=== PATIENT | female | born 1960 | race Hispanic/Latino ===

== ENCOUNTER 2017-06-06 13:55 | Inpatient (IN) | payer MEDICAID ==
[2017-06-06] MEDS ORDERED: PROVENTIL IH ONE ×2 (14:02→14:15)
[2017-06-06] MEDS ORDERED: ATROVENT IH ONE ×2 (14:02→14:16)
[2017-06-06] MEDS ORDERED: MAGNESIUM SULFATE 1 GM in NACL 0.9% 50 ML IV ONE (14:12)
--- NOTE | 2017-06-06 14:28 | Emergency Department Report ---
HPI - General Chief Complaint: Dyspnea/Respdistress Time Seen by Provider: 06/06/17 14:10 - HPI HPI: This 57-year-old female with history of COPD and tobacco abuse continuous presents to ED in severe respiratory distress on CPAP per EMS, because her sats was in the lower 80s. Patient states she's been short of breath, wheezing for the past 3-4 days. She has seen her java lead architect Dr. Turner who recommended that she come to ED for further evaluation. While on her way to ED her shortness of breath, became extremely worse she had to call EMS for help. Patient has been steroids outpatient and outpatient antibiotics without relief for the past 3 days. 3 days ago her java lead architect recommended that she come to the hospital for admission but she refused at that time. ED Past Medical Hx - Past Medical History Hx Asthma: Yes Hx COPD: Yes Additional medical history: Anxiety - Surgical History Additional Surgical History: L. leg surgey, hysterectomy - Family History Family history: hypertension - Social History Smoking Status: Current Every Day Smoker - Medications Home Medications: Home Medications Medication Instructions Recorded Confirmed Last Taken Type ALBUTEROL Inhaler [ProAir HFA 2 puff IH QID PRN #1 container 06/07/16 Unknown Rx Inhaler] Azithromycin [Zithromax TAB] 500 mg PO DAILY #4 tablet 06/07/16 Unknown Rx Budesoni/Formotero 160-4.5(Nf) 2 puff IH BID #1 container 06/07/16 Unknown Rx [Symbicort 160-4.5 (Nf)] Ipratropium/Albuterol Sulfate 1 ampul IH Q6HRT #120 ampul.neb 06/07/16 Unknown Rx [DUONEB *Not for PRN Use*] Ondansetron [Zofran Odt] 4 mg PO Q8HR #20 tab.rapdis 06/07/16 Unknown Rx Pantoprazole [Protonix TAB] 20 mg PO QDAY #30 tablet. 06/07/16 Unknown Rx Prednisone [predniSONE 5 mg (6-Day 5 mg PO .TAPER #1 tab.ds.pk 06/07/16 Unknown Rx Pack, 21 Tabs)] ED Review of Systems ROS: Stated complaint: EL Other details as noted in HPI Comment: All other systems reviewed and negative Respiratory: shortness of breath, wheezing Gastrointestinal: as per HPI Genitourinary: as per HPI Musculoskeletal: as per HPI Physical Exam - Physical Exam Vital Signs: Vital Signs 06/06/17 06/06/17 13:55 14:18 Pulse Rate 111 H Pulse Rate [ 98 H Anterior Bilateral Throughout] Respiratory 20 Rate Respiratory 17 Rate [Anterior Bilateral Throughout] Blood Pressure 150/81 O2 Sat by Pulse 100 Oximetry Physical Exam: - Physical Exam - General Limitations: In respiratory distress General appearance: Obese and respiratory distress - Head Head exam: Present: atraumatic, normocephalic - Eye Eye exam: Present: normal appearance - ENT ENT exam: Present: mucous membranes moist - Neck Neck exam: Present: normal inspection - Respiratory Respiratory exam: Present: Severe wheezing bilaterally - Cardiovascular Cardiovascular Exam: Present: normal rhythm, tachycardia. Absent: systolic murmur, diastolic murmur, rubs, gallop - GI/Abdominal GI/Abdominal exam: Present: soft, normal bowel sounds - Extremities Exam Extremities exam: Present: normal inspection - Back Exam Back exam: Present: normal inspection - Neurological Exam Neurological exam: Present: alert, oriented X3 - Psychiatric Psychiatric exam: normal affect and mood - Skin Skin exam: Present: warm, dry, intact, normal color. Absent: rash ED Course Vital Signs 06/06/17 06/06/17 13:55 14:18 Pulse Rate 111 H Pulse Rate [ 98 H Anterior Bilateral Throughout] Respiratory 20 Rate Respiratory 17 Rate [Anterior Bilateral Throughout] Blood Pressure 150/81 O2 Sat by Pulse 100 Oximetry Critical care attestation.: If time is entered above; I have spent that time in minutes in the direct care of this critically ill patient, excluding procedure time. ED Disposition Clinical Impression: COPD exacerbation Disposition: OP ADMIT IP TO THIS HOSP Is pt being admited?: Yes Does the pt Need Aspirin: No Condition: Stable Instructions: Chronic Obstructive Pulmonary Disease (ED)
[2017-06-06 14:40] LABS: Basophils % (Auto) 0.3 % (0.0-1.8); Hematocrit 41.3 % (30.3-42.9); Hemoglobin 13.6 gm/dl (10.1-14.3); Mean Corpuscular HGB Conc 33 % (30-34); Mean Corpuscular Hemoglobin 30 pg (28-32); Mean Corpuscular Volume 91 fl (79-97); Platelet Count 167 K/mm3 (140-440); Red Blood Count 4.55 M/mm3 (3.65-5.03); Red Cell Distribution Width 16.6 % (13.2-15.2); White Blood Count 7.5 K/mm3 (4.5-11.0)
--- NOTE | 2017-06-06 14:47 | XRay Report ---
AP CHEST: HISTORY: Short of breath Rebreather device is noted. Heart size and pulmonary vascularity are within normal limits. The lungs are mildly hyperinflated but clear. No consolidation, pleural effusion or pneumothorax. IMPRESSION: No acute cardiopulmonary process is appreciated.
[2017-06-06 14:51] LABS: INR 0.89 (0.87-1.13)
[2017-06-06 14:52] LABS: Partial Thromboplastin Time 22.6 Sec. (24.2-36.6)
--- NOTE | 2017-06-06 14:58 | Admit Criteria Form ---
Admission Criteria Documentation: COPD Clinical Indications for Admission to Inpatient Care (Native/ check or initial the applicable condition/criteria) Admission is indicated for ANY ONE of the following (1)(2)(3): [ ]I. Acute exacerbation by high-risk comorbidity(e.g., pneumonia, dysrhythmia, heart failure, pleural effusion, pneumothorax) or severe underlying COPD (eg, baseline FEV1 less than 50% predicted) [ X]II. Inpatient admission required[A] rather than observation care (see Chronic Obstructive Pulmonary Disease: Observation Care) because of ANY ONE of the following: [X ]a) New or pre-existing signs or symptoms of COPD (eg, dyspnea or Tachypnea at rest or with minimal activity) that persist despite outpatient and observation care treatment [ ]b) New-onset hypoxemia (room air SaO2 less than 90%, PO2 less than 60 mm Hg (8.0 kPa)) that persists despite outpatient and observation care treatment [ ]c) Worsening of pre-existing hypoxemia (eg, new or increased requirement for supplemental oxygen to maintain oxygenation at baseline level) that persists despite outpatient and observation care treatment, with oxygen treatment needs performable only in acute inpatient setting [ ]d) Hypercarbia (PCO2 greater than 40 mm Hg (5.3 kPa))-induced respiratory acidosis (pH less than 7.35) that persists despite outpatient and observation care treatment [ ]e) Supplemental oxygen or respiratory treatments for over 24 hours that are performable only in acute inpatient setting [ ]f) Chest tube placement with active evacuation (e.g., suction, drainage) (6) [ ]g) Other condition, treatment or monitoring requiring inpatient admission [ ]III. Planned invasive surgical or diagnostic procedures requiring acute- care hospitalization [ ]IV. Acute respiratory failure (e.g., uncompensated hypercarbia, severe hypoxemia) [ ]V. Severe comorbid condition (e.g., severe steroid myopathy, acute vertebral fracture) that has acutely worsened pulmonary function [ ]. Altered mental status that is severe or persistent Extended stay beyond goal length of stay may be needed for (29)(30)(31)(32)(33) : [ ]a ) Respiratory Failure. [ ]b) Severe or persisting hypoxemia or hypercarbia [ ]c) Severe or persistent dyspnea [ ]d) Clinically significant Comorbidities (e.g. chronic heart failure, atrial fibrillation with rapid response, pneumonia)(36) [ ]e) Malnutrition (33) The original [facility] content created by [facility] has been revised. The portions of the content which have been revised are identified through the use of italic text or in bold, and [facility] has neither reviewed nor approved the modified material. All other unmodified content is copyright [facility]. Please see references footnoted in the original [facility] edition 2017 Admission Criteria Met: Yes
[2017-06-06] MEDS ORDERED: MAGNESIUM SULFATE 2GM/50ML 0 GM/0 ML BAG IV ONE (15:06)
[2017-06-06 15:39] LABS: Alanine Aminotransferase 238 units/L (7-56); Albumin 3.8 g/dL (3.9-5); Albumin/Globulin Ratio 1.5 %; Alkaline Phosphatase 72 units/L (35-129); Anion Gap 21 mmol/L; Blood Urea Nitrogen 18 mg/dL (7-17); Calcium 8.6 mg/dL (8.4-10.2); Carbon Dioxide 27 mmol/L (22-30); Chloride 97.2 mmol/L (98-107); Glucose 231 mg/dL (65-100); Potassium 4.2 mmol/L (3.6-5.0); Sodium 141 mmol/L (137-145); Total Protein 6.4 g/dL (6.3-8.2)
[2017-06-06 15:51] LABS: ISTAT Base Excess 4; ISTAT HCO3 29.6; ISTAT PH 7.347 (7.35-7.45); ISTAT PO2 107 (80-105); ISTAT SO2 98; ISTAT TCO2 31
[2017-06-06] MEDS ORDERED: DULCOLAX PR PRN (18:21)
[2017-06-06] MEDS ORDERED: DILAUDID IV PRN (18:21)
[2017-06-06] MEDS ORDERED: MILK OF MAGNESIA PO PRN (18:21)
[2017-06-06] MEDS ORDERED: TYLENOL PO PRN (18:21)
--- NOTE | 2017-06-06 18:21 | History and Physical Report ---
History of Present Illness Date of examination: 06/06/17 Date of admission: 06/06/17 Chief complaint: Severe resp distress since AM History of present illness: HPI This 57-year-old female with history of COPD and tobacco abuse presents to ED in severe respiratory distress on CPAP per EMS, because her sats was in the lower 80s. Patient states she's been short of breath, wheezing for the past 3-4 days. She has seen her commercial review appraiser Dr. Turner who recommended that she come to ED for further evaluation. While on her way to ED her shortness of breath, became extremely worse she had to call EMS for help. Patient has been steroids outpatient and outpatient antibiotics without relief for the past 3 days. 3 days ago her commercial review appraiser recommended that she come to the hospital for admission but she refused at that time. - Past Medical History Hx Asthma: Yes Hx COPD: Yes Additional medical history: Anxiety - Surgical History Additional Surgical History: L. leg surgey, hysterectomy - Family History Family history: hypertension - Social History Smoking Status: Current Every Day Smoker - Medications Home Medications: Home Medications Medication Instructions Recorded Confirmed Last Taken Type ALBUTEROL Inhaler [ProAir HFA 2 puff IH QID PRN #1 container 06/07/16 Unknown Rx Inhaler] Azithromycin [Zithromax TAB] 500 mg PO DAILY #4 tablet 06/07/16 Unknown Rx Budesoni/Formotero 160-4.5(Nf) 2 puff IH BID #1 container 06/07/16 Unknown Rx [Symbicort 160-4.5 (Nf)] Ipratropium/Albuterol Sulfate 1 ampul IH Q6HRT #120 ampul.neb 06/07/16 Unknown Rx [DUONEB *Not for PRN Use*] Ondansetron [Zofran Odt] 4 mg PO Q8HR #20 tab.rapdis 06/07/16 Unknown Rx Pantoprazole [Protonix TAB] 20 mg PO QDAY #30 tablet. 06/07/16 Unknown Rx Prednisone [predniSONE 5 mg (6-Day 5 mg PO .TAPER #1 tab.ds.pk 06/07/16 Unknown Rx Pack, 21 Tabs)] Review of Systems ROS: Stated complaint: EL Other details as noted in HPI Comment: All other systems reviewed and negative Respiratory: shortness of breath, wheezing Gastrointestinal: as per HPI Genitourinary: as per HPI Musculoskeletal: as per HPI Medications and Allergies Allergies Allergy/AdvReac Type Severity Reaction Status Date / Time No Known Allergies Allergy Unverified 02/15/16 06:56 Home Medications Medication Instructions Recorded Confirmed Last Taken Type ALBUTEROL Inhaler [ProAir HFA 2 puff PO BID 06/06/17 06/06/17 Unknown History Inhaler] Famotidine [Pepcid] 20 mg PO QDAY PRN 06/06/17 06/06/17 Unknown History Naproxen Sodium [Aleve TAB] 1 tab PO QDAY PRN 06/06/17 06/06/17 Unknown History guaiFENesin/DEXTROMETHORPHAN 1 tab PO Q4H 06/06/17 06/06/17 Unknown History [Mucinex DM ER 600-30 mg TAB] predniSONE [Deltasone] 10 mg PO BID 06/06/17 06/06/17 Unknown History Exam - Physical Exam Narrative exam: In severe distress - Constitutional Vitals: Temp Pulse Resp BP Pulse Ox 98.5 F 105 H 22 146/75 94 06/06/17 17:20 06/06/17 17:20 06/06/17 17:20 06/06/17 17:20 06/06/17 17:20 General appearance: Present: severe distress, well-nourished - EENT Eyes: Present: PERRL ENT: hearing intact, clear oral mucosa - Neck Neck: Present: supple, normal ROM - Respiratory Respiratory effort: normal Respiratory: bilateral: diminished, rhonchi, wheezing - Cardiovascular Heart rate: 105 Rhythm: regular Heart Sounds: Present: S1 & S2. Absent: rub, click - Extremities Extremities: no ischemia, pulses intact, pulses symmetrical, No edema Peripheral Pulses: within normal limits - Abdominal General gastrointestinal: Present: soft, non-tender, non-distended, normal bowel sounds Female genitourinary: Present: normal - Rectal Rectal Exam: deferred - Integumentary Integumentary: Present: clear, warm, dry - Musculoskeletal Musculoskeletal: gait normal, strength equal bilaterally - Psychiatric Psychiatric: appropriate mood/affect, intact judgment & insight - Neurologic Neurologic: CNII-XII intact, moves all extremities - Allied Health Allied health notes reviewed: nursing, case management Results - Labs CBC & Chem 7: 06/06/17 14:25 06/06/17 14:25 Labs: Laboratory Last Values WBC 7.5 K/mm3 (4.5-11.0) 06/06/17 14:25 RBC 4.55 M/mm3 (3.65-5.03) 06/06/17 14:25 Hgb 13.6 gm/dl (10.1-14.3) 06/06/17 14:25 Hct 41.3 % (30.3-42.9) 06/06/17 14:25 MCV 91 fl (79-97) 06/06/17 14:25 MCH 30 pg (28-32) 06/06/17 14:25 MCHC 33 % (30-34) 06/06/17 14:25 RDW 16.6 % (13.2-15.2) H 06/06/17 14:25 Plt Count 167 K/mm3 (140-440) 06/06/17 14:25 Lymph % (Auto) 8.8 % (13.4-35.0) L 06/06/17 14:25 [place] % (Auto) 2.2 % (0.0-7.3) 06/06/17 14:25 Eos % (Auto) 0.0 % (0.0-4.3) 06/06/17 14:25 Baso % (Auto) 0.3 % (0.0-1.8) 06/06/17 14:25 Lymph # 0.7 K/mm3 (1.2-5.4) L 06/06/17 14:25 [place] # 0.2 K/mm3 (0.0-0.8) 06/06/17 14:25 Eos # 0.0 K/mm3 (0.0-0.4) 06/06/17 14:25 Baso # 0.0 K/mm3 (0.0-0.1) 06/06/17 14:25 Seg Neutrophils % 88.7 % (40.0-70.0) H 06/06/17 14:25 Seg Neutrophils # 6.6 K/mm3 (1.8-7.7) 06/06/17 14:25 PT 12.5 Sec. (12.2-14.9) 06/06/17 14:25 INR 0.89 (0.87-1.13) 06/06/17 14:25 APTT 22.6 Sec. (24.2-36.6) L 06/06/17 14:25 POC ABG pH 7.347 (7.35-7.45) L 06/06/17 15:49 POC ABG pCO2 54.0 (35-45) H 06/06/17 15:49 POC ABG pO2 107 (80-105) H 06/06/17 15:49 POC ABG HCO3 29.6 06/06/17 15:49 POC ABG Total CO2 31 06/06/17 15:49 POC ABG O2 Sat 98 06/06/17 15:49 POC ABG Base Excess 4 06/06/17 15:49 FiO2 36 % 06/06/17 15:49 Sodium 141 mmol/L (137-145) 06/06/17 14:25 Potassium 4.2 mmol/L (3.6-5.0) 06/06/17 14:25 Chloride 97.2 mmol/L (98-107) L 06/06/17 14:25 Carbon Dioxide 27 mmol/L (22-30) 06/06/17 14:25 Anion Gap 21 mmol/L 06/06/17 14:25 BUN 18 mg/dL (7-17) H 06/06/17 14:25 Creatinine 0.5 mg/dL (0.7-1.2) L 06/06/17 14:25 Estimated GFR > 60 ml/min 06/06/17 14:25 BUN/Creatinine Ratio 36.00 % 06/06/17 14:25 Glucose 231 mg/dL (65-100) H 06/06/17 14:25 Calcium 8.6 mg/dL (8.4-10.2) 06/06/17 14:25 Total Bilirubin 0.20 mg/dL (0.1-1.2) 06/06/17 14:25 AST 195 units/L (5-40) H 06/06/17 14:25 ALT 238 units/L (7-56) H 06/06/17 14:25 Alkaline Phosphatase 72 units/L (35-129) 06/06/17 14:25 Troponin T < 0.010 ng/mL (0.00-0.029) 06/06/17 14:25 NT-Pro-B Natriuret Pep 47.53 pg/mL (0-900) 06/06/17 14:25 Total Protein 6.4 g/dL (6.3-8.2) 06/06/17 14:25 Albumin 3.8 g/dL (3.9-5) L 06/06/17 14:25 Albumin/Globulin Ratio 1.5 % 06/06/17 14:25 Short CBC 06/06/17 Range/Units 14:25 WBC 7.5 (4.5-11.0) K/mm3 Hgb 13.6 (10.1-14.3) gm/dl Hct 41.3 (30.3-42.9) % Plt Count 167 (140-440) K/mm3 BMP 06/06/17 14:25 Sodium 141 Potassium 4.2 Chloride 97.2 L Carbon Dioxide 27 BUN 18 H Creatinine 0.5 L Glucose 231 H Calcium 8.6 Cardiac Enzymes 06/06/17 Range/Units 14:25 Troponin T < 0.010 (0.00-0.029) ng/mL Liver Function 06/06/17 Range/Units 14:25 Total Bilirubin 0.20 (0.1-1.2) mg/dL AST 195 H (5-40) units/L ALT 238 H (7-56) units/L Alkaline Phosphatase 72 (35-129) units/L Albumin 3.8 L (3.9-5) g/dL - Imaging and Cardiology EKG: report reviewed (Sinus tach) Chest x-ray: report reviewed (NAF) Assessment and Plan Advance Directives: Yes VTE prophylaxis?: Chemical Plan of care discussed with patient/family: Yes - Patient Problems (1) Acute respiratory failure with hypoxia Current Visit: No Status: Acute Plan to address problem: Agressive treatment with BIPAP Neb tx Solumedrol and IV ABX Intubation if necessary (2) COPD exacerbation Current Visit: Yes Status: Acute (3) Hypertension Current Visit: No Status: Chronic Qualifiers: Hypertension type: essential hypertension Qualified Code(s): I10 - Essential (primary) hypertension Plan to address problem: not on any antihypertensives.Borderline.Initiate Loartan if necessary (4) Tobacco abuse Current Visit: No Status: Chronic Plan to address problem: To be counselled Patient in severe distress -hence not counselled (5) GERD (gastroesophageal reflux disease) Current Visit: Yes Status: Chronic Qualifiers: Esophagitis presence: without esophagitis Qualified Code(s): K21.9 - Gastro -esophageal reflux disease without esophagitis Plan to address problem: On Famotidine (6) DVT prophylaxis Current Visit: Yes Status: Acute Plan to address problem: on Lovenox
[2017-06-06] MEDS ORDERED: ZOFRAN ONE ×2 (18:24→19:25)
[2017-06-06] MEDS ORDERED: PEPCID PO PRN (18:24)
[2017-06-06] MEDS ORDERED: ZOFRAN IV ONE (18:25)
[2017-06-06] MEDS ORDERED: DILAUDID ONE (19:25)
[2017-06-06] MEDS ORDERED: LEVAQUIN 750MG/150ML 750 MG/150 ML BAG IV SCH (19:30)
[2017-06-06] MEDS: ZOFRAN IV PRN (19:31)
[2017-06-06] MEDS ORDERED: LEVAQUIN 750MG/150ML 750 MG/150 ML BAG IV ONE (19:36)
[2017-06-06] MEDS ORDERED: DELTASONE PO SCH (22:00)
[2017-06-07] MEDS: DUONEB *Not for PRN Use IH SCH ×5 (00:50→20:50)
[2017-06-07] MEDS: ZOFRAN IV PRN ×2 (03:00→13:25)
[2017-06-07] MEDS: PERCOCET 5/325 PO PRN ×3 (06:29→23:45)
--- NOTE | 2017-06-07 10:09 | Progress Note ---
Assessment and Plan Assessment and plan: 57-year-old woman with a past medical history of COPD and tobacco abuse who presented to the ER with shortness of breath and hypoxia Chest x-ray, image reviewed no acute cardiopulmonary process Acute hypoxic respiratory failure * Continue supplemental oxygen, and aggressively treat COPD exacerbation COPD exacerbation * Continue steroids, nebs, antibiotics, noninvasive positive pressure ventilation as needed * pulmonology consult Anxiety disorder * We'll monitor and give low-dose benzodiazepine if needed Tobacco abuse * Smoking cessation counseling provided along with, nicotine patches * This patient actually left her room for a few hours and went outside the hospital to smoke, she was advised that she's no longer to do that when she sustained her while she is inpatient. This was discussed with her nurse also, patient has been advised not to leave her room and not to go outside and smoke while she is admitted to the hospital GERD * Continue famotidine Prediabetes * Hyperglycemia most likely due to steroids, * Hemoglobin A1c is 6.4, continue sliding scale as needed, dietitian consult for diet education DVT prophylaxis with Lovenox History Interval history: She continues to have shortness of breath and wheezing, but she states that shortness of breath is much improved. Hospitalist Physical - Physical exam Narrative exam: General.: Appears well, no distress, nontoxic HEENT: Moist mucous membranes, extraocular muscles intact, no lymphadenopathy Neck: supple Cardiac: S1-S2 heard Lungs: Reduced air entry, wheezing bilaterally Abdomen: soft , nontender, nondistended, bowel sounds positive Extremities: no edema clubbing or cyanosis Skin: no rash or lesions Neurologic: no gross focal deficits Psych: appropriate behavior, appropriate mood, corporative, judgment intact - Constitutional Vitals: Temp Pulse Resp BP Pulse Ox 98 F 91 H 20 145/74 96 06/06/17 18:55 06/07/17 09:46 06/07/17 09:46 06/06/17 20:45 06/07/17 09:36 General appearance: Present: mild distress, well-nourished Results - Labs CBC & Chem 7: 06/06/17 14:25 06/06/17 14:25 Labs: Laboratory Last Values WBC 7.5 K/mm3 (4.5-11.0) 06/06/17 14:25 RBC 4.55 M/mm3 (3.65-5.03) 06/06/17 14:25 Hgb 13.6 gm/dl (10.1-14.3) 06/06/17 14:25 Hct 41.3 % (30.3-42.9) 06/06/17 14:25 MCV 91 fl (79-97) 06/06/17 14:25 MCH 30 pg (28-32) 06/06/17 14:25 MCHC 33 % (30-34) 06/06/17 14:25 RDW 16.6 % (13.2-15.2) H 06/06/17 14:25 Plt Count 167 K/mm3 (140-440) 06/06/17 14:25 Lymph % (Auto) 8.8 % (13.4-35.0) L 06/06/17 14:25 [place] % (Auto) 2.2 % (0.0-7.3) 06/06/17 14:25 Eos % (Auto) 0.0 % (0.0-4.3) 06/06/17 14:25 Baso % (Auto) 0.3 % (0.0-1.8) 06/06/17 14:25 Lymph # 0.7 K/mm3 (1.2-5.4) L 06/06/17 14:25 [place] # 0.2 K/mm3 (0.0-0.8) 06/06/17 14:25 Eos # 0.0 K/mm3 (0.0-0.4) 06/06/17 14:25 Baso # 0.0 K/mm3 (0.0-0.1) 06/06/17 14:25 Seg Neutrophils % 88.7 % (40.0-70.0) H 06/06/17 14:25 Seg Neutrophils # 6.6 K/mm3 (1.8-7.7) 06/06/17 14:25 PT 12.5 Sec. (12.2-14.9) 06/06/17 14:25 INR 0.89 (0.87-1.13) 06/06/17 14:25 APTT 22.6 Sec. (24.2-36.6) L 06/06/17 14:25 POC ABG pH 7.347 (7.35-7.45) L 06/06/17 15:49 POC ABG pCO2 54.0 (35-45) H 06/06/17 15:49 POC ABG pO2 107 (80-105) H 06/06/17 15:49 POC ABG HCO3 29.6 06/06/17 15:49 POC ABG Total CO2 31 06/06/17 15:49 POC ABG O2 Sat 98 06/06/17 15:49 POC ABG Base Excess 4 06/06/17 15:49 FiO2 36 % 06/06/17 15:49 Sodium 141 mmol/L (137-145) 06/06/17 14:25 Potassium 4.2 mmol/L (3.6-5.0) 06/06/17 14:25 Chloride 97.2 mmol/L (98-107) L 06/06/17 14:25 Carbon Dioxide 27 mmol/L (22-30) 06/06/17 14:25 Anion Gap 21 mmol/L 06/06/17 14:25 BUN 18 mg/dL (7-17) H 06/06/17 14:25 Creatinine 0.5 mg/dL (0.7-1.2) L 06/06/17 14:25 Estimated GFR > 60 ml/min 06/06/17 14:25 BUN/Creatinine Ratio 36.00 % 06/06/17 14:25 Glucose 231 mg/dL (65-100) H 06/06/17 14:25 Hemoglobin A1c 6.4 % (4-6) H 06/06/17 14:25 Calcium 8.6 mg/dL (8.4-10.2) 06/06/17 14:25 Total Bilirubin 0.20 mg/dL (0.1-1.2) 06/06/17 14:25 AST 195 units/L (5-40) H 06/06/17 14:25 ALT 238 units/L (7-56) H 06/06/17 14:25 Alkaline Phosphatase 72 units/L (35-129) 06/06/17 14:25 Troponin T < 0.010 ng/mL (0.00-0.029) 06/06/17 14:25 NT-Pro-B Natriuret Pep 47.53 pg/mL (0-900) 06/06/17 14:25 Total Protein 6.4 g/dL (6.3-8.2) 06/06/17 14:25 Albumin 3.8 g/dL (3.9-5) L 06/06/17 14:25 Albumin/Globulin Ratio 1.5 % 06/06/17 14:25
[2017-06-07] MEDS ORDERED: D50W (25GM) Syringe IV PRN (11:00)
[2017-06-07] MEDS ORDERED: PROVENTIL IH PRN (12:00)
--- NOTE | 2017-06-07 13:19 | Consultation ---
History of Present Illness Consult date: 06/07/17 Requesting physician: GERHARD PRESCOTT Reason for consult: other (COPD) History of present illness: [address] Turner, admitted with at least 1 month of increased SOB, wheezing, cough with purulent sputum, chest discomfort, subjective fevers/chills , and some blood-streaked sputum. Apparently failed a course of what sounds to be Amoxicillin or Augmentin. Active Medications Acetaminophen (Tylenol) 650 mg PO Q4H PRN PRN Reason: Pain MILD(1-3)/Fever >100.5/SHAFFER Albuterol (Proventil) 2.5 mg IH Q4HRT PRN PRN Reason: Shortness Of Breath Albuterol/Ipratropium (Duoneb *Not For Prn Use*) 1 ampul IH TIDRT [facility] Arformoterol Tartrate (Brovana Nebu) 15 mcg IH Q12HRT [facility] Bisacodyl (Dulcolax) 10 mg MA QDAY PRN PRN Reason: Constipation unrelieved by [facility] Budesonide (Pulmicort) 0.5 mg IH Q12HRT [facility] Dextrose (D50w (25gm) Syringe) 50 ml IV PRN PRN PRN Reason: Hypoglycemia Enoxaparin Sodium (Lovenox) 40 mg SUB-Q QDAY [facility] Famotidine (Pepcid) 20 mg PO QDAY PRN PRN Reason: stomach acid Insulin Aspart (Novolog) 0 units SUB-Q ACHS [facility] PRN Reason: Protocol Levofloxacin (Levaquin) 750 mg PO Q24H [facility] Magnesium Hydroxide (Milk Of Magnesia) 30 ml PO Q4H PRN PRN Reason: Constipation Methylprednisolone Sodium Succinate (Solu-Medrol) 80 mg IV Q8H [facility] Nicotine (Habitrol) 14 mg TD QDAY [facility] Ondansetron HCl (Zofran) 4 mg IV Q8H PRN PRN Reason: N/V unrelieved by Reglan Last Admin: 06/07/17 03:00 Dose: 4 mg Oxycodone/Acetaminophen (Percocet 5/325) 1 tab PO Q6H PRN PRN Reason: Pain, Moderate (4-6) Last Admin: 06/07/17 06:29 Dose: 1 tab Tiotropium [place] (Spiriva) 1 puff IH Q24HRT [facility] Past History Past Medical History: other (COPD, GERD, Obesity) Social history: smoking, full code. denies: alcohol abuse, prescription drug abuse, IV drug use Family history: other (No pulm issues reported) Medications and Allergies Allergies Allergy/AdvReac Type Severity Reaction Status Date / Time No Known Allergies Allergy Unverified 02/15/16 06:56 Home Medications Medication Instructions Recorded Confirmed Last Taken Type ALBUTEROL Inhaler [ProAir HFA 2 puff PO BID 06/06/17 06/06/17 Unknown History Inhaler] Famotidine [Pepcid] 20 mg PO QDAY PRN 06/06/17 06/06/17 Unknown History Naproxen Sodium [Aleve TAB] 1 tab PO QDAY PRN 06/06/17 06/06/17 Unknown History guaiFENesin/DEXTROMETHORPHAN 1 tab PO Q4H 06/06/17 06/06/17 Unknown History [Mucinex DM ER 600-30 mg TAB] predniSONE [Deltasone] 10 mg PO BID 06/06/17 06/06/17 Unknown History Active Meds: Active Medications Acetaminophen (Tylenol) 650 mg PO Q4H PRN PRN Reason: Pain MILD(1-3)/Fever >100.5/SHAFFER Albuterol (Proventil) 2.5 mg IH Q4HRT PRN PRN Reason: Shortness Of Breath Albuterol/Ipratropium (Duoneb *Not For Prn Use*) 1 ampul IH TIDRT [facility] Arformoterol Tartrate (Brovana Nebu) 15 mcg IH Q12HRT [facility] Bisacodyl (Dulcolax) 10 mg MA QDAY PRN PRN Reason: Constipation unrelieved by MOM Budesonide (Pulmicort) 0.5 mg IH Q12HRT [facility] Dextrose (D50w (25gm) Syringe) 50 ml IV PRN PRN PRN Reason: Hypoglycemia Enoxaparin Sodium (Lovenox) 40 mg SUB-Q QDAY [facility] Famotidine (Pepcid) 20 mg PO QDAY PRN PRN Reason: stomach acid Insulin Aspart (Novolog) 0 units SUB-Q ACHS [facility] PRN Reason: Protocol Levofloxacin (Levaquin) 750 mg PO Q24H [facility] Magnesium Hydroxide (Milk Of Magnesia) 30 ml PO Q4H PRN PRN Reason: Constipation Methylprednisolone Sodium Succinate (Solu-Medrol) 80 mg IV Q8H [facility] Nicotine (Habitrol) 14 mg TD QDAY [facility] Ondansetron HCl (Zofran) 4 mg IV Q8H PRN PRN Reason: N/V unrelieved by Reglan Last Admin: 06/07/17 03:00 Dose: 4 mg Oxycodone/Acetaminophen (Percocet 5/325) 1 tab PO Q6H PRN PRN Reason: Pain, Moderate (4-6) Last Admin: 06/07/17 06:29 Dose: 1 tab Tiotropium [place] (Spiriva) 1 puff IH Q24HRT [facility] Review of Systems All systems: negative Physical Examination Vital signs: Vital Signs Pulse Resp BP Pulse Ox 111 H 20 150/81 100 06/06/17 13:55 06/06/17 13:55 06/06/17 13:55 06/06/17 13:55 Vital Signs - 24 hr 06/06/17 06/06/17 06/06/17 13:55 14:18 15:40 Temperature Pulse Rate 111 H 111 H Pulse Rate [ 98 H Anterior Bilateral Throughout] Respiratory 20 29 H Rate Respiratory 17 Rate [Anterior Bilateral Throughout] Blood Pressure 150/81 Blood Pressure [Right] O2 Sat by Pulse 100 98 Oximetry 06/06/17 06/06/17 06/06/17 15:46 16:00 17:20 Temperature 98.5 F Pulse Rate 108 H 105 H Pulse Rate [ Anterior Bilateral Throughout] Respiratory 19 22 Rate Respiratory Rate [Anterior Bilateral Throughout] Blood Pressure Blood Pressure 146/75 [Right] O2 Sat by Pulse 96 97 94 Oximetry 06/06/17 06/06/17 06/06/17 17:42 17:46 18:00 Temperature Pulse Rate Pulse Rate [ Anterior Bilateral Throughout] Respiratory Rate Respiratory Rate [Anterior Bilateral Throughout] Blood Pressure 146/75 146/75 Blood Pressure [Right] O2 Sat by Pulse 92 92 94 Oximetry 06/06/17 06/06/17 06/06/17 18:16 18:30 18:46 Temperature Pulse Rate 104 H Pulse Rate [ Anterior Bilateral Throughout] Respiratory 24 Rate Respiratory Rate [Anterior Bilateral Throughout] Blood Pressure 148/73 148/73 148/73 Blood Pressure [Right] O2 Sat by Pulse 96 97 91 Oximetry 06/06/17 06/06/17 06/06/17 18:55 19:28 19:39 Temperature 98 F Pulse Rate 88 106 H 102 H Pulse Rate [ Anterior Bilateral Throughout] Respiratory 19 23 18 Rate Respiratory Rate [Anterior Bilateral Throughout] Blood Pressure 148/73 148/73 Blood Pressure 148/73 [Right] O2 Sat by Pulse 96 96 96 Oximetry 06/06/17 06/06/17 06/06/17 19:45 20:01 20:15 Temperature Pulse Rate 117 H 103 H 103 H Pulse Rate [ Anterior Bilateral Throughout] Respiratory 25 H 21 23 Rate Respiratory Rate [Anterior Bilateral Throughout] Blood Pressure 115/81 115/81 115/81 Blood Pressure [Right] O2 Sat by Pulse 90 91 Oximetry 06/06/17 06/06/17 06/07/17 20:31 20:45 02:10 Temperature Pulse Rate 96 H 105 H Pulse Rate [ 87 Anterior Bilateral Throughout] Respiratory 18 16 Rate Respiratory 20 Rate [Anterior Bilateral Throughout] Blood Pressure 103/77 145/74 Blood Pressure [Right] O2 Sat by Pulse 92 94 Oximetry 06/07/17 06/07/17 06/07/17 02:23 09:35 09:36 Temperature Pulse Rate Pulse Rate [ 88 Anterior Bilateral Throughout] Respiratory Rate Respiratory 22 Rate [Anterior Bilateral Throughout] Blood Pressure Blood Pressure [Right] O2 Sat by Pulse 96 96 Oximetry 06/07/17 06/07/17 09:38 09:46 Temperature Pulse Rate Pulse Rate [ 94 H 91 H Anterior Bilateral Throughout] Respiratory Rate Respiratory 20 20 Rate [Anterior Bilateral Throughout] Blood Pressure Blood Pressure [Right] O2 Sat by Pulse Oximetry General appearance: no acute distress, alert Eyes: non-icteric Neck: supple Effort: normal Ascultation: Bilateral: wheezes Cardiovascular: regular rate and rhythm (no mrg) Gastrointestinal: normoactive bowel sounds, soft, non-tender, non-distended Integumentary: normal Extremities: no cyanosis, no edema, pink and warm Musculoskeletal: no deformities normal mental status, non-focal exam, pupils equal and round, CN II-XII normal mood appropriate, affect normal Results - Laboratory Findings CBC and BMP: 06/06/17 14:25 06/06/17 14:25 ABG POC ABG pH 7.347 (7.35-7.45) L 06/06/17 15:49 POC ABG pCO2 54.0 (35-45) H 06/06/17 15:49 POC ABG pO2 107 (80-105) H 06/06/17 15:49 POC ABG HCO3 29.6 06/06/17 15:49 POC ABG Total CO2 31 06/06/17 15:49 POC ABG O2 Sat 98 06/06/17 15:49 PT/INR, D-dimer PT 12.5 Sec. (12.2-14.9) 06/06/17 14:25 INR 0.89 (0.87-1.13) 06/06/17 14:25 Abnormal lab findings: Abnormal Labs 06/07/17 12:37 POC Glucose 225 H - Diagnostic Findings Chest x-ray: report reviewed, image reviewed (hyperinflation, grossly clear) Assessment and Plan Imp: 1. Acute bronchitis 2. Centrilobular emphysema/COPD exac. 3. A/C respiratory failure, hypoxia and hypercapnea 4. Chronic nicotine dependence, cigarettes 5. Transaminitis, ? fatty liver Rec: 1. Reduce Solumedrol to 80mg IV [id number] 2. Pulmicort/Brovana/Duonebs 3. Agree w/ Levaquin 4. Consider hepatitis testing and abdominal imaging re: elevated LFTs 5. Needs to stop smoking -> counseled 6. Further plans pending clinical course Plan of care reviewed w/ patient, she understands/agrees Thanks kindly for the consult.
[2017-06-07] MEDS: NOVOLOG SUB-Q SCH ×3 (13:23→23:00)
[2017-06-07] MEDS: LOVENOX SUB-Q SCH (13:24)
[2017-06-07] MEDS: HABITROL TD SCH (13:25)
[2017-06-07] MEDS: PULMICORT IH SCH ×2 (16:37→20:50)
[2017-06-07] MEDS: BROVANA NEBU IH SCH ×2 (16:37→20:51)
[2017-06-07] MEDS: LEVAQUIN PO SCH (22:00)
[2017-06-08] MEDS: PERCOCET 5/325 PO PRN ×3 (05:40→18:30)
[2017-06-08 06:54] LABS: Hematocrit 38.9 % (30.3-42.9); Hemoglobin 12.7 gm/dl (10.1-14.3); Mean Corpuscular HGB Conc 33 % (30-34); Mean Corpuscular Hemoglobin 29 pg (28-32); Mean Corpuscular Volume 90 fl (79-97); Platelet Count 179 K/mm3 (140-440); Red Blood Count 4.33 M/mm3 (3.65-5.03); Red Cell Distribution Width 16.2 % (13.2-15.2); White Blood Count 8.4 K/mm3 (4.5-11.0)
[2017-06-08 07:10] LABS: Alanine Aminotransferase 160 units/L (7-56); Albumin 3.6 g/dL (3.9-5); Albumin/Globulin Ratio 1.5 %; Alkaline Phosphatase 60 units/L (35-129); Anion Gap 19 mmol/L; Blood Urea Nitrogen 16 mg/dL (7-17); Calcium 8.9 mg/dL (8.4-10.2); Carbon Dioxide 29 mmol/L (22-30); Chloride 96.2 mmol/L (98-107); Glucose 162 mg/dL (65-100); Potassium 5.4 mmol/L (3.6-5.0); Sodium 139 mmol/L (137-145)
[2017-06-08] MEDS: PULMICORT IH SCH ×2 (07:25→20:33)
--- NOTE | 2017-06-08 08:55 | Progress Note ---
Assessment and Plan Assessment and plan: 57-year-old woman with a past medical history of COPD and tobacco abuse who presented to the ER with shortness of breath and hypoxia Chest x-ray, image reviewed no acute cardiopulmonary process Acute hypoxic respiratory failure * Continue supplemental oxygen, and aggressively treat COPD exacerbation COPD exacerbation * Continue steroids, nebs, antibiotics, noninvasive positive pressure ventilation as needed * pulmonology consult Anxiety disorder * We'll monitor and give low-dose benzodiazepine if needed Tobacco abuse * Smoking cessation counseling provided along with, nicotine patches * This patient actually left her room for a few hours and went outside the hospital to smoke, she was advised that she's no longer to do that when she sustained her while she is inpatient. This was discussed with her nurse also, patient has been advised not to leave her room and not to go outside and smoke while she is admitted to the hospital Hyponatremia * Most likely due to SIADH due to acute pulmonary condition, treat underlying cause Hyperkalemia * Give 1 dose of Kayexalate today GERD * Continue famotidine Prediabetes * Hyperglycemia most likely due to steroids, * Hemoglobin A1c is 6.4, continue sliding scale as needed, dietitian consult for diet education DVT prophylaxis with Lovenox History Interval history: She continues to have shortness of breath , but she states that shortness of breath is much improved. Hospitalist Physical - Physical exam Narrative exam: General.: Appears well, no distress, nontoxic HEENT: Moist mucous membranes, extraocular muscles intact, no lymphadenopathy Neck: supple Cardiac: S1-S2 heard Lungs: Reduced air entry, no wheezing Abdomen: soft , nontender, nondistended, bowel sounds positive Extremities: no edema clubbing or cyanosis Skin: no rash or lesions Neurologic: no gross focal deficits Psych: appropriate behavior, appropriate mood, corporative, judgment intact - Constitutional Vitals: Temp Pulse Resp BP Pulse Ox 97.9 F 85 22 125/72 97 06/08/17 07:51 06/08/17 07:51 06/08/17 07:51 06/08/17 07:51 06/08/17 07:51 General appearance: Present: mild distress, well-nourished Results - Labs CBC & Chem 7: 06/08/17 06:18 06/08/17 06:18 Labs: Laboratory Last Values WBC 8.4 K/mm3 (4.5-11.0) 06/08/17 06:18 RBC 4.33 M/mm3 (3.65-5.03) 06/08/17 06:18 Hgb 12.7 gm/dl (10.1-14.3) 06/08/17 06:18 Hct 38.9 % (30.3-42.9) 06/08/17 06:18 MCV 90 fl (79-97) 06/08/17 06:18 MCH 29 pg (28-32) 06/08/17 06:18 MCHC 33 % (30-34) 06/08/17 06:18 RDW 16.2 % (13.2-15.2) H 06/08/17 06:18 Plt Count 179 K/mm3 (140-440) 06/08/17 06:18 Lymph % (Auto) 8.8 % (13.4-35.0) L 06/06/17 14:25 Amelia % (Auto) 2.2 % (0.0-7.3) 06/06/17 14:25 Eos % (Auto) 0.0 % (0.0-4.3) 06/06/17 14:25 Baso % (Auto) 0.3 % (0.0-1.8) 06/06/17 14:25 Lymph # 0.7 K/mm3 (1.2-5.4) L 06/06/17 14:25 Amelia # 0.2 K/mm3 (0.0-0.8) 06/06/17 14:25 Eos # 0.0 K/mm3 (0.0-0.4) 06/06/17 14:25 Baso # 0.0 K/mm3 (0.0-0.1) 06/06/17 14:25 Seg Neutrophils % 88.7 % (40.0-70.0) H 06/06/17 14:25 Seg Neutrophils # 6.6 K/mm3 (1.8-7.7) 06/06/17 14:25 PT 12.5 Sec. (12.2-14.9) 06/06/17 14:25 INR 0.89 (0.87-1.13) 06/06/17 14:25 APTT 22.6 Sec. (24.2-36.6) L 06/06/17 14:25 POC ABG pH 7.347 (7.35-7.45) L 06/06/17 15:49 POC ABG pCO2 54.0 (35-45) H 06/06/17 15:49 POC ABG pO2 107 (80-105) H 06/06/17 15:49 POC ABG HCO3 29.6 06/06/17 15:49 POC ABG Total CO2 31 06/06/17 15:49 POC ABG O2 Sat 98 06/06/17 15:49 POC ABG Base Excess 4 06/06/17 15:49 FiO2 36 % 06/06/17 15:49 Sodium 139 mmol/L (137-145) 06/08/17 06:18 Potassium 5.4 mmol/L (3.6-5.0) H D 06/08/17 06:18 Chloride 96.2 mmol/L (98-107) L 06/08/17 06:18 Carbon Dioxide 29 mmol/L (22-30) 06/08/17 06:18 Anion Gap 19 mmol/L 06/08/17 06:18 BUN 16 mg/dL (7-17) 06/08/17 06:18 Creatinine 0.5 mg/dL (0.7-1.2) L 06/08/17 06:18 Estimated GFR > 60 ml/min 06/08/17 06:18 BUN/Creatinine Ratio 32.00 % 06/08/17 06:18 Glucose 162 mg/dL (65-100) H 06/08/17 06:18 POC Glucose 157 (70-105) H 06/07/17 21:54 Hemoglobin A1c 6.4 % (4-6) H 06/06/17 14:25 Calcium 8.9 mg/dL (8.4-10.2) 06/08/17 06:18 Total Bilirubin 0.30 mg/dL (0.1-1.2) 06/08/17 06:18 AST 69 units/L (5-40) H 06/08/17 06:18 ALT 160 units/L (7-56) H 06/08/17 06:18 Alkaline Phosphatase 60 units/L (35-129) 06/08/17 06:18 Total Creatine Kinase 114 units/L (30-135) 06/08/17 06:18 Troponin T < 0.010 ng/mL (0.00-0.029) 06/06/17 14:25 NT-Pro-B Natriuret Pep 47.53 pg/mL (0-900) 06/06/17 14:25 Total Protein 6.0 g/dL (6.3-8.2) L 06/08/17 06:18 Albumin 3.6 g/dL (3.9-5) L 06/08/17 06:18 Albumin/Globulin Ratio 1.5 % 06/08/17 06:18
[2017-06-08] MEDS: NOVOLOG SUB-Q SCH ×4 (09:00→22:06)
[2017-06-08 09:09] LABS: Blastocytes % (Manual) 0 %
[2017-06-08 09:10] LABS: Basophils % (Manual) 0 % (0.0-1.8); Diff Status Complete; Eosinophils % (Manual) 0 % (0.0-4.3); Platelet Estimate Consistent w Auto; RBC Morphology Normal
[2017-06-08] MEDS: DUONEB *Not for PRN Use IH SCH ×4 (09:14→20:33)
[2017-06-08] MEDS: BROVANA NEBU IH SCH ×2 (09:15→20:33)
[2017-06-08] MEDS ORDERED: KIONEX PO NR (09:30)
[2017-06-08] MEDS: LOVENOX SUB-Q SCH (09:45)
[2017-06-08] MEDS: HABITROL TD SCH (09:45)
--- NOTE | 2017-06-08 14:02 | Progress Note ---
Assessment and Plan Imp: 1. Acute bronchitis 2. Centrilobular emphysema/COPD exac. 3. A/C respiratory failure, hypoxia and hypercapnea 4. Chronic nicotine dependence, cigarettes 5. Transaminitis, ? fatty liver 6. Mild cardiomyopathy; LVEF of 45-50% on Echo, w/o pulm HTN 7. Hyperkalemia Rec: 1. Reduce Solumedrol to 40mg IV [id number] 2. Pulmicort/Brovana/Duonebs 3. Agree w/ Levaquin; treat x 7 days 4. Consider hepatitis testing and abdominal imaging re: elevated LFTs 5. Needs to stop smoking -> counseled 6. Received kayexalate; f/u K 7. Asking me for pain meds both times I have seen her; defer to IMS but try caution advised due to COPD/CO2 retention 8. Recommend cardiology evaluation given reduced LVEF and dizziness Plan of care reviewed w/ patient, she understands/agrees Subjective Date of service: 06/08/17 Principal diagnosis: COPD exac. Interval history: No events. Awake, alert. Feels better. Still has dizziness with walking. + Cough /sputum. Active Medications Acetaminophen (Tylenol) 650 mg PO Q4H PRN PRN Reason: Pain MILD(1-3)/Fever >100.5/SHAFFER Albuterol (Proventil) 2.5 mg IH Q4HRT PRN PRN Reason: Shortness Of Breath Last Admin: 06/08/17 04:28 Dose: 2.5 mg Albuterol/Ipratropium (Duoneb *Not For Prn Use*) 1 ampul IH TIDRT [facility] Last Admin: 06/08/17 09:14 Dose: 1 ampul Arformoterol Tartrate (Brovana Nebu) 15 mcg IH Q12HRT [facility] Last Admin: 06/08/17 09:15 Dose: Not Given Bisacodyl (Dulcolax) 10 mg DE QDAY PRN PRN Reason: Constipation unrelieved by MOM Last Admin: 06/07/17 23:47 Dose: 10 mg Budesonide (Pulmicort) 0.5 mg IH Q12HRT [facility] Last Admin: 06/08/17 07:25 Dose: 0.5 mg Dextrose (D50w (25gm) Syringe) 50 ml IV PRN PRN PRN Reason: Hypoglycemia Enoxaparin Sodium (Lovenox) 40 mg SUB-Q QDAY [facility] Last Admin: 06/08/17 09:45 Dose: 40 mg Famotidine (Pepcid) 20 mg PO QDAY PRN PRN Reason: stomach acid Last Admin: 06/07/17 13:24 Dose: 20 mg Insulin Aspart (Novolog) 0 units SUB-Q ACHS [facility] PRN Reason: Protocol Last Admin: 06/08/17 09:00 Dose: 1 units Levofloxacin (Levaquin) 750 mg PO Q24H [facility] Last Admin: 06/07/17 22:00 Dose: 750 mg Magnesium Hydroxide (Milk Of Magnesia) 30 ml PO Q4H PRN PRN Reason: Constipation Methylprednisolone Sodium Succinate (Solu-Medrol) 80 mg IV Q8H [facility] Last Admin: 06/08/17 05:40 Dose: 80 mg Nicotine (Habitrol) 14 mg TD QDAY [facility] Last Admin: 06/08/17 09:45 Dose: 14 mg Ondansetron HCl (Zofran) 4 mg IV Q8H PRN PRN Reason: N/V unrelieved by [facility] Last Admin: 06/07/17 13:25 Dose: 4 mg Oxycodone/Acetaminophen (Percocet 5/325) 1 tab PO Q6H PRN PRN Reason: Pain, Moderate (4-6) Last Admin: 06/08/17 11:41 Dose: 1 tab Tiotropium [place] (Spiriva) 1 puff IH Q24HRT [facility] Objective Vital Signs - 12hr 06/08/17 06/08/17 06/08/17 04:07 04:30 04:42 Temperature 98.1 F Pulse Rate 96 H Pulse Rate [ 104 H 106 H Anterior Bilateral Throughout] Respiratory 20 Rate Respiratory 18 18 Rate [Anterior Bilateral Throughout] Blood Pressure 144/92 Blood Pressure [Right] O2 Sat by Pulse 99 Oximetry 06/08/17 06/08/17 06/08/17 07:00 07:51 10:00 Temperature 97.7 F 97.9 F Pulse Rate 92 H 85 85 Pulse Rate [ Anterior Bilateral Throughout] Respiratory 22 22 18 Rate Respiratory Rate [Anterior Bilateral Throughout] Blood Pressure 125/72 Blood Pressure 125/72 [Right] O2 Sat by Pulse 96 97 Oximetry 06/08/17 12:00 Temperature 97.7 F Pulse Rate 90 Pulse Rate [ Anterior Bilateral Throughout] Respiratory 26 H Rate Respiratory Rate [Anterior Bilateral Throughout] Blood Pressure Blood Pressure 165/97 [Right] O2 Sat by Pulse 97 Oximetry Constitutional: no acute distress, alert Eyes: non-icteric Neck: supple Effort: normal Ascultation: Bilateral: wheezes (better) Cardiovascular: regular rate and rhythm (no mrg) Gastrointestinal: normoactive bowel sounds, soft, non-tender, non-distended Integumentary: normal Extremities: no cyanosis, no edema, pink and warm Neurologic: normal mental status, non-focal exam, pupils equal and round, CN II- XII normal Psychiatric: mood appropriate, affect normal CBC and BMP: 06/08/17 06:18 06/08/17 06:18 ABG, PT/INR, D-dimer: ABG POC ABG pH 7.347 (7.35-7.45) L 06/06/17 15:49 POC ABG pCO2 54.0 (35-45) H 06/06/17 15:49 POC ABG pO2 107 (80-105) H 06/06/17 15:49 POC ABG HCO3 29.6 06/06/17 15:49 POC ABG Total CO2 31 06/06/17 15:49 POC ABG O2 Sat 98 06/06/17 15:49 PT/INR, D-dimer PT 12.5 Sec. (12.2-14.9) 06/06/17 14:25 INR 0.89 (0.87-1.13) 06/06/17 14:25 Abnormal lab findings: Abnormal Labs 06/07/17 06/07/17 06/07/17 12:37 17:33 21:54 RDW Seg Neuts % (Manual) Lymphocytes % (Manual) Lymphocytes # (Manual) Potassium Chloride Creatinine Glucose POC Glucose 225 H 171 H 157 H AST ALT Total Protein Albumin 06/08/17 06/08/17 06/08/17 06:18 06:18 07:08 RDW 16.2 H Seg Neuts % (Manual) 86.0 H Lymphocytes % (Manual) 7.0 L Lymphocytes # (Manual) 0.6 L Potassium 5.4 H D Chloride 96.2 L Creatinine 0.5 L Glucose 162 H POC Glucose 155 H AST 69 H ALT 160 H Total Protein 6.0 L Albumin 3.6 L Chest x-ray: report reviewed, image reviewed
[2017-06-08] MEDS ORDERED: ROBITUSSIN DM PO PRN (14:17)
[2017-06-08] MEDS: SPIRIVA IH SCH (15:14)
[2017-06-08] MEDS: ZOFRAN IV PRN (18:30)
[2017-06-08] MEDS: LEVAQUIN PO SCH (22:04)
[2017-06-09] MEDS: PERCOCET 5/325 PO PRN ×3 (03:37→23:23)
[2017-06-09] MEDS: DUONEB *Not for PRN Use IH SCH ×4 (03:40→20:57)
[2017-06-09] MEDS: BROVANA NEBU IH SCH ×2 (08:13→20:57)
[2017-06-09] MEDS: PULMICORT IH SCH ×2 (08:14→20:57)
[2017-06-09] MEDS ORDERED: KIONEX PO ONE (08:45)
[2017-06-09] MEDS: NOVOLOG SUB-Q SCH ×4 (08:51→21:49)
[2017-06-09] MEDS: LOVENOX SUB-Q SCH (09:31)
[2017-06-09] MEDS: HABITROL TD SCH (09:32)
[2017-06-09 10:49] LABS: Anion Gap 22 mmol/L; Blood Urea Nitrogen 16 mg/dL (7-17); Calcium 8.7 mg/dL (8.4-10.2); Carbon Dioxide 29 mmol/L (22-30); Chloride 91.3 mmol/L (98-107); Glucose 172 mg/dL (65-100); Sodium 137 mmol/L (137-145)
--- NOTE | 2017-06-09 12:00 | Discharge Summary ---
Providers - Providers Date of Admission: 06/06/17 18:22 Attending physician: JIE VALENZUELA MD 06/07/17 10:15 Consult to Dietitian/Nutrition [CONS] Routine Physician Instructions: Reason For Exam: Reason for Consult: Diet education 06/07/17 14:56 Consult to Physician [CONS] Routine Consulting Provider: CHRISSY BELTRAN Reason For Exam: copd Place consult to:: [facility] Notified:: OFFICE Phone number called:: [phone] Was contact made?: Yes If yes, spoke with:: JOSE ELIAS Time called:: 15:21 06/08/17 14:23 Consult to Dietitian/Nutrition [CONS] Routine Physician Instructions: Reason For Exam: Reason for Consult: Malnutrition Primary care physician: CO DIRECTOR Hospitalization Reason for admission: shortness of breath Condition: Stable Hospital course: 57-year-old woman with a past medical history of COPD and tobacco abuse who presented to the ER with shortness of breath and hypoxia patient was diagnosed with COPD exacerbation and started on aggressive therapy. Echocardiogram showed ejection fraction of 45-50% recommendation to follow up with cardiology outpatient. Patient received extensive discussion about tobacco cessation which she verbalized understanding. She was treated with IV Solu-Medrol and tapered down to steroids on discharge. She was seen by pulmonary in house. She also did have evidence of hepatitis C on studies is recommended to follow with GI for baseline liver evaluation and also serial follow-up and treatment. Again she understands that if she does not stop smoking symptoms will return. Condition at time of discharge stable Acute hypoxic respiratory failure * Continue home supplemental oxygen, now back to baseline Chronic diastolic congestive heart failure stable * Ejection fraction 45-50% on echo recommended to follow up with cardiology on discharge. COPD exacerbation-Centrilobular emphysema/acute bronchitis. * Continue steroids, taper as recommended by pulmonary. * Patient was treated with IV steroids and neb Kelly treatment. Also antibiotics. Anxiety disorder * No acute pathology was noted. Patient remained stable. Tobacco abuse * Smoking cessation counseling provided along with, nicotine patches * This patient actually left her room for a few hours and went outside the hospital to smoke, she was advised that she's no longer to do that when she sustained her while she is inpatient. This was discussed with her nurse also, patient has been advised not to leave her room and not to go outside and smoke while she is admitted to the hospital Hyponatremia * Most likely due to SIADH due to acute pulmonary condition, and resolved with treatment of underlying course underlying cause Hyperkalemia * Give 1 dose of Kayexalate and this helps resolution Hepatitis C * GI follow up outpatient. Baseline liver ultrasound obtained. GERD * Continue famotidine Moderate protein calorie malnutrition * A cook helper dessert consult with Transaminitis * Trended down Chronic tobacco dependence * 15 minutes of counseling provided to the patient on need to quit resources provided Prediabetes * Hyperglycemia most likely due to steroids, * Hemoglobin A1c is 6.4, continue sliding scale as needed, dietitian consult for diet education Disposition: DC-01 TO HOME OR SELFCARE Time spent for discharge: 35 mins Core Measure Documentation - Palliative Care Palliative Care/ Comfort Measures: Not Applicable - Core Measures Any of the following diagnoses?: none - VTE Discharge Requirements Deep Vein Thrombosis/Pulmonary Embolism Present on Admission: No Exam - Physical Exam Narrative exam: VITAL SIGNS: Reviewed. GENERAL: The patient appeared well nourished and normally developed. Vital signs as documented. HEAD: No signs of head trauma. EYES: Pupils are equal. Extraocular motions intact. EARS: Hearing grossly intact. MOUTH: Oropharynx is normal. NECK: No adenopathy, no JVD. CHEST: Chest with bilateral expiratory wheezes, much improved. CARDIAC: Regular rate and rhythm. S1 and S2, without murmurs, gallops, or rubs. VASCULAR: No Edema. Peripheral pulses normal and equal in all extremities. ABDOMEN: Soft, without detectable tenderness. No sign of distention. No rebound or guarding, and no masses palpated. Bowel Sounds normal. MUSCULOSKELETAL: Good range of motion of all major joints. Extremities without clubbing, cyanosis or edema. NEUROLOGIC EXAM: Alert and oriented x 3. No focal sensory or strength deficits. Speech normal. Follows commands. PSYCHIATRIC: Mood normal. SKIN: multiple pleuritic lesions in the upper extremity.. - Constitutional Vitals: Temp Pulse Resp BP Pulse Ox 98.3 F 102 H 22 143/88 99 06/09/17 08:34 06/09/17 08:34 06/09/17 08:34 06/09/17 08:34 06/09/17 08:34 Plan Activity: advance as tolerated, fall precautions Diet: low fat Special Instructions: record daily BP diary, smoking cessation Additional Instructions: Restart BID steroids after completing Tapering dose Follow up with: CRISTHIAN URIBE MD [Staff Physician] - 7 Days DINORA DOSHI MD [Staff Physician] - 7 Days PRIMARY CARE, [Primary Care Provider] - 7 Days LANIE MON MD [Staff Physician] - 7 Days Forms: AMA Form Prescriptions: Fluticasone/Salmeterol [Advair Diskus 250-50 mcg] 1 puff IH BID 30 Days Levofloxacin [Levaquin TAB] 750 mg PO Q24H #5 tablet Nicotine [Habitrol] 14 mg TD QDAY #1 patch Ondansetron [Zofran TAB] 4 mg PO Q8HR PRN #20 tablet PRN Reason: Nausea oxyCODONE /ACETAMINOPHEN [Percocet 5/325 mg] 1 tab PO Q6H PRN #10 tablet PRN Reason: Pain, Moderate (4-6) predniSONE [Deltasone] 10 mg PO .TAPER #48 tab Tiotropium [Spiriva] 1 puff IH Q24HRT 30 Days Triamcinolone 0.1% [Kenalog 0.1% CREAM] 1 applic TP BID #1 tube
[2017-06-09] MEDS: SPIRIVA IH SCH (12:18)
--- NOTE | 2017-06-09 13:07 | Progress Note ---
Assessment and Plan Imp: 1. Acute bronchitis 2. Centrilobular emphysema/COPD exac. 3. A/C respiratory failure, hypoxia and hypercapnea 4. Chronic nicotine dependence, cigarettes 5. Transaminitis, ? fatty liver 6. Mild cardiomyopathy; LVEF of 45-50% on Echo, w/o pulm HTN 7. Hyperkalemia Rec: 1. Reduce Solumedrol to 20mg IV [id number] 2. Pulmicort/Brovana/Duonebs 3. Agree w/ Levaquin; treat x 7 days 4. Consider hepatitis testing and abdominal imaging re: elevated LFTs 5. Needs to stop smoking -> counseled 6. Monitor K 7. Pain meds per primary; advise caution due to COPD/CO2 retention 8. Recommend cardiology evaluation given reduced LVEF and dizziness Plan of care reviewed w/ patient, she understands/agrees Subjective Date of service: 06/09/17 Principal diagnosis: COPD exac. Interval history: No events. Awake, alert. Feels better. Still has dizziness with walking. + Cough but better, sputum now clear without hemoptysis. Active Medications Acetaminophen (Tylenol) 650 mg PO Q4H PRN PRN Reason: Pain MILD(1-3)/Fever >100.5/SHAFFER Albuterol (Proventil) 2.5 mg IH Q4HRT PRN PRN Reason: Shortness Of Breath Last Admin: 06/08/17 04:28 Dose: 2.5 mg Albuterol/Ipratropium (Duoneb *Not For Prn Use*) 1 ampul IH Q6HRT [facility] Last Admin: 06/09/17 08:14 Dose: 1 ampul Arformoterol Tartrate (Brovana Nebu) 15 mcg IH Q12HRT [facility] Last Admin: 06/09/17 08:13 Dose: 15 mcg Bisacodyl (Dulcolax) 10 mg [place] QDAY PRN PRN Reason: Constipation unrelieved by MOM Last Admin: 06/07/17 23:47 Dose: 10 mg Budesonide (Pulmicort) 0.5 mg IH Q12HRT [facility] Last Admin: 06/09/17 08:14 Dose: 0.5 mg Dextrose (D50w (25gm) Syringe) 50 ml IV PRN PRN PRN Reason: Hypoglycemia Enoxaparin Sodium (Lovenox) 40 mg SUB-Q QDAY [facility] Last Admin: 06/09/17 09:31 Dose: 40 mg Famotidine (Pepcid) 20 mg PO QDAY PRN PRN Reason: stomach acid Last Admin: 06/07/17 13:24 Dose: 20 mg Guaifenesin (Robitussin Dm) 10 ml PO Q4H PRN PRN Reason: Cough Last Admin: 06/09/17 03:37 Dose: 10 ml Insulin Aspart (Novolog) 0 units SUB-Q ACHS [facility] PRN Reason: Protocol Last Admin: 06/09/17 08:51 Dose: Not Given Levofloxacin (Levaquin) 750 mg PO Q24H [facility] Last Admin: 06/08/17 22:04 Dose: 750 mg Magnesium Hydroxide (Milk Of Magnesia) 30 ml PO Q4H PRN PRN Reason: Constipation Last Admin: 06/08/17 22:04 Dose: 30 ml Methylprednisolone Sodium Succinate (Solu-Medrol) 20 mg IV Q8H [place] Nicotine (Habitrol) 14 mg TD QDAY [facility] Last Admin: 06/09/17 09:32 Dose: 14 mg Ondansetron HCl (Zofran) 4 mg IV Q8H PRN PRN Reason: N/V unrelieved by Reglan Last Admin: 06/08/17 18:30 Dose: 4 mg Oxycodone/Acetaminophen (Percocet 5/325) 1 tab PO Q6H PRN PRN Reason: Pain, Moderate (4-6) Last Admin: 06/09/17 03:37 Dose: 1 tab Tiotropium [place] (Spiriva) 1 puff IH Q24HRT [facility] Last Admin: 06/09/17 12:18 Dose: Not Given Objective Vital Signs - 12hr 06/09/17 06/09/17 06/09/17 03:41 03:50 04:34 Temperature 97.7 F Pulse Rate 108 H Pulse Rate [ 111 H 113 H Anterior Bilateral Throughout] Respiratory 22 Rate Respiratory 24 24 Rate [Anterior Bilateral Throughout] Blood Pressure 148/78 O2 Sat by Pulse 98 Oximetry 06/09/17 06/09/17 06/09/17 08:10 08:16 08:29 Temperature Pulse Rate Pulse Rate [ 105 H 118 H Anterior Bilateral Throughout] Respiratory Rate Respiratory 20 22 Rate [Anterior Bilateral Throughout] Blood Pressure O2 Sat by Pulse 100 Oximetry 06/09/17 06/09/17 08:34 11:55 Temperature 98.3 F 97.8 F Pulse Rate 102 H 107 H Pulse Rate [ Anterior Bilateral Throughout] Respiratory 22 26 H Rate Respiratory Rate [Anterior Bilateral Throughout] Blood Pressure 143/88 152/90 O2 Sat by Pulse 99 99 Oximetry Constitutional: no acute distress, alert Eyes: non-icteric Neck: supple Effort: normal Ascultation: Bilateral: wheezes (better) Cardiovascular: regular rate and rhythm (no mrg) Gastrointestinal: normoactive bowel sounds, soft, non-tender, non-distended Integumentary: normal Extremities: no cyanosis, no edema, pink and warm Neurologic: normal mental status, non-focal exam, pupils equal and round, CN II- XII normal Psychiatric: mood appropriate, affect normal CBC and BMP: 06/08/17 06:18 06/09/17 09:51 ABG, PT/INR, D-dimer: ABG POC ABG pH 7.347 (7.35-7.45) L 06/06/17 15:49 POC ABG pCO2 54.0 (35-45) H 06/06/17 15:49 POC ABG pO2 107 (80-105) H 06/06/17 15:49 POC ABG HCO3 29.6 06/06/17 15:49 POC ABG Total CO2 31 06/06/17 15:49 POC ABG O2 Sat 98 06/06/17 15:49 PT/INR, D-dimer PT 12.5 Sec. (12.2-14.9) 06/06/17 14:25 INR 0.89 (0.87-1.13) 06/06/17 14:25 Abnormal lab findings: Abnormal Labs 06/07/17 06/07/17 06/07/17 12:37 17:33 21:54 RDW Seg Neuts % (Manual) Lymphocytes % (Manual) Lymphocytes # (Manual) Potassium Chloride Creatinine Glucose POC Glucose 225 H 171 H 157 H AST ALT Total Protein Albumin 06/08/17 06/08/17 06/08/17 06:18 06:18 07:08 RDW 16.2 H Seg Neuts % (Manual) 86.0 H Lymphocytes % (Manual) 7.0 L Lymphocytes # (Manual) 0.6 L Potassium 5.4 H D Chloride 96.2 L Creatinine 0.5 L Glucose 162 H POC Glucose 155 H AST 69 H ALT 160 H Total Protein 6.0 L Albumin 3.6 L 06/08/17 06/08/17 06/09/17 16:33 22:09 09:51 RDW Seg Neuts % (Manual) Lymphocytes % (Manual) Lymphocytes # (Manual) Potassium Chloride 91.3 L Creatinine 0.5 L Glucose 172 H POC Glucose 220 H 148 H AST ALT Total Protein Albumin 06/09/17 12:01 RDW Seg Neuts % (Manual) Lymphocytes % (Manual) Lymphocytes # (Manual) Potassium Chloride Creatinine Glucose POC Glucose 156 H AST ALT Total Protein Albumin Chest x-ray: report reviewed, image reviewed
--- NOTE | 2017-06-09 13:26 | Progress Note ---
Assessment and Plan Assessment and plan: 57-year-old woman with a past medical history of COPD and tobacco abuse who presented to the ER with shortness of breath and hypoxia Chest x-ray, image reviewed no acute cardiopulmonary process Acute hypoxic respiratory failure * Continue supplemental oxygen, and aggressively treat COPD exacerbation Chronic diastolic congestive heart failure stable * Ejection fraction 45-50% on echo recommended to follow up with cardiology on discharge. COPD exacerbation-Centrilobular emphysema/acute bronchitis. * Continue steroids, repair was recommended by pulmonary nebs, antibiotics, noninvasive positive pressure ventilation as needed * pulmonology consult. Antibiotics per pulmonary recommendation Anxiety disorder * We'll monitor and give low-dose benzodiazepine if needed Tobacco abuse * Smoking cessation counseling provided along with, nicotine patches * This patient actually left her room for a few hours and went outside the hospital to smoke, she was advised that she's no longer to do that when she sustained her while she is inpatient. This was discussed with her nurse also, patient has been advised not to leave her room and not to go outside and smoke while she is admitted to the hospital Hyponatremia * Most likely due to SIADH due to acute pulmonary condition, treat underlying cause Hyperkalemia * Give 1 dose of Kayexalate today GERD * Continue famotidine Moderate protein calorie malnutrition * A carrier blower consult with Transaminitis * Likely secondary to fatty liver disease will obtain an ultrasound to evaluate. We'll also check hepatitis panel. Chronic tobacco dependence * 15 minutes of counseling provided to the patient on need to quit resources provided Prediabetes * Hyperglycemia most likely due to steroids, * Hemoglobin A1c is 6.4, continue sliding scale as needed, dietitian consult for diet education Hyperkalemia * We'll give a dose of Kayexalate. DVT prophylaxis with Lovenox Plan of care discussed with the patient also with pulmonary. . History Interval history: Patient seen and examined in no acute distress at this time. Still with mild shortness of breath although improved and still with audible wheeze. Initially wanted to leave AGAINST MEDICAL ADVICE but later agreeable to stay for treatment. Hospitalist Physical - Physical exam Narrative exam: VITAL SIGNS: Reviewed. GENERAL: The patient appeared well nourished and normally developed. Vital signs as documented. HEAD: No signs of head trauma. EYES: Pupils are equal. Extraocular motions intact. EARS: Hearing grossly intact. MOUTH: Oropharynx is normal. NECK: No adenopathy, no JVD. CHEST: Chest with bilateral expiratory wheezes. CARDIAC: Regular rate and rhythm. S1 and S2, without murmurs, gallops, or rubs. VASCULAR: No Edema. Peripheral pulses normal and equal in all extremities. ABDOMEN: Soft, without detectable tenderness. No sign of distention. No rebound or guarding, and no masses palpated. Bowel Sounds normal. MUSCULOSKELETAL: Good range of motion of all major joints. Extremities without clubbing, cyanosis or edema. NEUROLOGIC EXAM: Alert and oriented x 3. No focal sensory or strength deficits. Speech normal. Follows commands. PSYCHIATRIC: Mood normal. SKIN: multiple pleuritic lesions in the upper extremity.. - Constitutional Vitals: Temp Pulse Resp BP Pulse Ox 97.8 F 107 H 26 H 152/90 99 06/09/17 11:55 06/09/17 11:55 06/09/17 11:55 06/09/17 11:55 06/09/17 11:55 General appearance: Present: mild distress, well-nourished Results - Labs CBC & Chem 7: 06/08/17 06:18 06/09/17 09:51 Labs: Laboratory Last Values WBC 8.4 K/mm3 (4.5-11.0) 06/08/17 06:18 RBC 4.33 M/mm3 (3.65-5.03) 06/08/17 06:18 Hgb 12.7 gm/dl (10.1-14.3) 06/08/17 06:18 Hct 38.9 % (30.3-42.9) 06/08/17 06:18 MCV 90 fl (79-97) 06/08/17 06:18 MCH 29 pg (28-32) 06/08/17 06:18 MCHC 33 % (30-34) 06/08/17 06:18 RDW 16.2 % (13.2-15.2) H 06/08/17 06:18 Plt Count 179 K/mm3 (140-440) 06/08/17 06:18 Lymph % (Auto) 8.8 % (13.4-35.0) L 06/06/17 14:25 [place] % (Auto) 2.2 % (0.0-7.3) 06/06/17 14:25 Eos % (Auto) 0.0 % (0.0-4.3) 06/06/17 14:25 Baso % (Auto) 0.3 % (0.0-1.8) 06/06/17 14:25 Lymph # 0.7 K/mm3 (1.2-5.4) L 06/06/17 14:25 [place] # 0.2 K/mm3 (0.0-0.8) 06/06/17 14:25 Eos # 0.0 K/mm3 (0.0-0.4) 06/06/17 14:25 Baso # 0.0 K/mm3 (0.0-0.1) 06/06/17 14:25 Add Manual Diff Complete 06/08/17 06:18 Total Counted 100 06/08/17 06:18 Seg Neutrophils % 88.7 % (40.0-70.0) H 06/06/17 14:25 Seg Neuts % (Manual) 86.0 % (40.0-70.0) H 06/08/17 06:18 Band Neutrophils % 0 % 06/08/17 06:18 Lymphocytes % (Manual) 7.0 % (13.4-35.0) L 06/08/17 06:18 Reactive Lymphs % (Man) 0 % 06/08/17 06:18 Monocytes % (Manual) 7.0 % (0.0-7.3) 06/08/17 06:18 Eosinophils % (Manual) 0 % (0.0-4.3) 06/08/17 06:18 Basophils % (Manual) 0 % (0.0-1.8) 06/08/17 06:18 Metamyelocytes % 0 % 06/08/17 06:18 Myelocytes % 0 % 06/08/17 06:18 Promyelocytes % 0 % 06/08/17 06:18 Blast Cells % 0 % 06/08/17 06:18 Nucleated RBC % Not Reportable 06/08/17 06:18 Seg Neutrophils # 6.6 K/mm3 (1.8-7.7) 06/06/17 14:25 Seg Neutrophils # Man 7.2 K/mm3 (1.8-7.7) 06/08/17 06:18 Band Neutrophils # 0.0 K/mm3 06/08/17 06:18 Lymphocytes # (Manual) 0.6 K/mm3 (1.2-5.4) L 06/08/17 06:18 Abs React Lymphs (Man) 0.0 K/mm3 06/08/17 06:18 Monocytes # (Manual) 0.6 K/mm3 (0.0-0.8) 06/08/17 06:18 Eosinophils # (Manual) 0.0 K/mm3 (0.0-0.4) 06/08/17 06:18 Basophils # (Manual) 0.0 K/mm3 (0.0-0.1) 06/08/17 06:18 Metamyelocytes # 0.0 K/mm3 06/08/17 06:18 Myelocytes # 0.0 K/mm3 06/08/17 06:18 Promyelocytes # 0.0 K/mm3 06/08/17 06:18 Blast Cells # 0.0 K/mm3 06/08/17 06:18 WBC Morphology Not Reportable 06/08/17 06:18 Hypersegmented Neuts Not Reportable 06/08/17 06:18 Hyposegmented Neuts Not Reportable 06/08/17 06:18 Hypogranular Neuts Not Reportable 06/08/17 06:18 Smudge Cells Not Reportable 06/08/17 06:18 Toxic Granulation Not Reportable 06/08/17 06:18 Toxic Vacuolation Not Reportable 06/08/17 06:18 Dohle Bodies Not Reportable 06/08/17 06:18 Pelger-Huet Anomaly Not Reportable 06/08/17 06:18 Maite Rods Not Reportable 06/08/17 06:18 Platelet Estimate Consistent w auto 06/08/17 06:18 Clumped Platelets Not Reportable 06/08/17 06:18 Plt Clumps, EDTA Not Reportable 06/08/17 06:18 Large Platelets Not Reportable 06/08/17 06:18 Giant Platelets Not Reportable 06/08/17 06:18 Platelet Satelliting Not Reportable 06/08/17 06:18 Plt Morphology Comment Not Reportable 06/08/17 06:18 RBC Morphology Normal 06/08/17 06:18 Dimorphic RBCs Not Reportable 06/08/17 06:18 Polychromasia Not Reportable 06/08/17 06:18 Hypochromasia Not Reportable 06/08/17 06:18 Poikilocytosis Not Reportable 06/08/17 06:18 Anisocytosis Not Reportable 06/08/17 06:18 Microcytosis Not Reportable 06/08/17 06:18 Macrocytosis Not Reportable 06/08/17 06:18 Spherocytes Not Reportable 06/08/17 06:18 Pappenheimer Bodies Not Reportable 06/08/17 06:18 Sickle Cells Not Reportable 06/08/17 06:18 Target Cells Not Reportable 06/08/17 06:18 Tear Drop Cells Not Reportable 06/08/17 06:18 Ovalocytes Not Reportable 06/08/17 06:18 Helmet Cells Not Reportable 06/08/17 06:18 Fonseca-Bostwick Bodies Not Reportable 06/08/17 06:18 [place] Rings Not Reportable 06/08/17 06:18 Satish Cells Not Reportable 06/08/17 06:18 Bite Cells Not Reportable 06/08/17 06:18 Crenated Cell Not Reportable 06/08/17 06:18 Elliptocytes Not Reportable 06/08/17 06:18 Acanthocytes (Spur) Not Reportable 06/08/17 06:18 Rouleaux Not Reportable 06/08/17 06:18 Hemoglobin C Crystals Not Reportable 06/08/17 06:18 Schistocytes Not Reportable 06/08/17 06:18 Malaria parasites Not Reportable 06/08/17 06:18 Mele Bodies Not Reportable 06/08/17 06:18 Hem Pathologist Commnt No 06/08/17 06:18 PT 12.5 Sec. (12.2-14.9) 06/06/17 14:25 INR 0.89 (0.87-1.13) 06/06/17 14:25 APTT 22.6 Sec. (24.2-36.6) L 06/06/17 14:25 POC ABG pH 7.347 (7.35-7.45) L 06/06/17 15:49 POC ABG pCO2 54.0 (35-45) H 06/06/17 15:49 POC ABG pO2 107 (80-105) H 06/06/17 15:49 POC ABG HCO3 29.6 06/06/17 15:49 POC ABG Total CO2 31 06/06/17 15:49 POC ABG O2 Sat 98 06/06/17 15:49 POC ABG Base Excess 4 06/06/17 15:49 FiO2 36 % 06/06/17 15:49 Sodium 137 mmol/L (137-145) 06/09/17 09:51 Potassium 5.0 mmol/L (3.6-5.0) 06/09/17 09:51 Chloride 91.3 mmol/L (98-107) L 06/09/17 09:51 Carbon Dioxide 29 mmol/L (22-30) 06/09/17 09:51 Anion Gap 22 mmol/L 06/09/17 09:51 BUN 16 mg/dL (7-17) 06/09/17 09:51 Creatinine 0.5 mg/dL (0.7-1.2) L 06/09/17 09:51 Estimated GFR > 60 ml/min 06/09/17 09:51 BUN/Creatinine Ratio 32.00 % 06/09/17 09:51 Glucose 172 mg/dL (65-100) H 06/09/17 09:51 POC Glucose 156 (70-105) H 06/09/17 12:01 Hemoglobin A1c 6.4 % (4-6) H 06/06/17 14:25 Calcium 8.7 mg/dL (8.4-10.2) 06/09/17 09:51 Total Bilirubin 0.30 mg/dL (0.1-1.2) 06/08/17 06:18 AST 69 units/L (5-40) H 06/08/17 06:18 ALT 160 units/L (7-56) H 06/08/17 06:18 Alkaline Phosphatase 60 units/L (35-129) 06/08/17 06:18 Total Creatine Kinase 114 units/L (30-135) 06/08/17 06:18 Troponin T < 0.010 ng/mL (0.00-0.029) 06/06/17 14:25 NT-Pro-B Natriuret Pep 47.53 pg/mL (0-900) 06/06/17 14:25 Total Protein 6.0 g/dL (6.3-8.2) L 06/08/17 06:18 Albumin 3.6 g/dL (3.9-5) L 06/08/17 06:18 Albumin/Globulin Ratio 1.5 % 06/08/17 06:18 - Imaging and Cardiology Chest x-ray: image reviewed (no acute cardiopulmonary process noted.)
[2017-06-09] MEDS ORDERED: FLEET PR ONE (14:30)
[2017-06-09] MEDS: KENALOG TP SCH ×2 (15:13→21:49)
[2017-06-09] MEDS: LEVAQUIN PO SCH (21:46)
[2017-06-09] MEDS ORDERED: PROVENTIL IH SCH (23:18)
[2017-06-09] MEDS: ATROVENT IH SCH (23:35)
[2017-06-09] MEDS: PROVENTIL IH SCH (23:35)
[2017-06-09] MEDS: ZOFRAN IV PRN (23:51)
[2017-06-10] MEDS: PROVENTIL IH SCH ×3 (03:03→11:00)
[2017-06-10] MEDS: ATROVENT IH SCH ×3 (03:03→11:00)
[2017-06-10] MEDS: DUONEB *Not for PRN Use IH SCH (03:33)
[2017-06-10] MEDS: BROVANA NEBU IH SCH (07:07)
[2017-06-10] MEDS: PULMICORT IH SCH (07:07)
--- NOTE | 2017-06-10 10:30 | Ultrasound Report ---
Abdominal sonogram: History: Cirrhosis. Findings: Mildly heterogeneous liver echo pattern. No intrahepatic or extrahepatic dilatation or mass. Common bile duct diameter 5.8 mm. Gallbladder wall thickness 1.7 mm. Single calculus in the gallbladder measures 6.4 mm. No pericholecystic fluid. Right kidney 10.5 x 2.7 x 4.9 cm. Cortical thickness 1.5 cm. Left kidney 2.8 x 3.9 x 5.1 cm. Cortical thickness 1.7 cm. Spleen measures 9.1 cm . Pancreas not well-visualized. Impression: Single calculus in gallbladder. Mildly heterogeneous liver echo pattern.
[2017-06-10] MEDS: SPIRIVA IH SCH (10:42)
[2017-06-10] MEDS: LOVENOX SUB-Q SCH (10:55)
[2017-06-10] MEDS: PERCOCET 5/325 PO PRN (10:55)
[2017-06-10] MEDS: HABITROL TD SCH (10:55)
[2017-06-10] MEDS: NOVOLOG SUB-Q SCH (10:56)
[2017-06-10] MEDS: KENALOG TP SCH (10:57)
[2017-06-10 11:03] LABS: Blood Urea Nitrogen 18 mg/dL (7-17); Calcium 8.3 mg/dL (8.4-10.2); Carbon Dioxide 39 mmol/L (22-30); Chloride 92.9 mmol/L (98-107); Glucose 151 mg/dL (65-100); Potassium 4.2 mmol/L (3.6-5.0); Sodium 142 mmol/L (137-145)
[2017-06-10 11:11] LABS: Anion Gap 14 mmol/L
[2017-06-10 11:35] VITALS: BP 145/87
--- NOTE | 2017-06-10 13:28 | Progress Note ---
Assessment and Plan Imp: 1. Acute bronchitis 2. Centrilobular emphysema/COPD exac. 3. A/C respiratory failure, hypoxia and hypercapnea 4. Chronic nicotine dependence, cigarettes 5. Transaminitis; Hep C + 6. Mild cardiomyopathy; LVEF of 45-50% on Echo, w/o pulm HTN 7. Hyperkalemia 8. Hepatitis C Rec: 1. Prednisone taper at d/c 2. Pulmicort/Brovana/Duonebs 3. Agree w/ Levaquin; treat x 7 days 4. Patient with Hep C; needs outpatient GI evaluation 5. Needs to stop smoking -> counseled 6. Monitor K 7. Pain meds per primary; advise caution due to COPD/CO2 retention 8. Recommend cardiology evaluation given reduced LVEF and dizziness Plan of care reviewed w/ patient, she understands/agrees Subjective Date of service: 06/10/17 Principal diagnosis: COPD exac. Interval history: No events. Awake, alert. Feels better. Still has dizziness with walking. + Cough but better, sputum now clear without hemoptysis. Active Medications Acetaminophen (Tylenol) 650 mg PO Q4H PRN PRN Reason: Pain MILD(1-3)/Fever >100.5/SHAFFER Albuterol (Proventil) 2.5 mg IH Q4HRT [facility] Last Admin: 06/10/17 11:00 Dose: 2.5 mg Arformoterol Tartrate (Brovana Nebu) 15 mcg IH Q12HRT [facility] Last Admin: 06/10/17 07:07 Dose: 15 mcg Bisacodyl (Dulcolax) 10 mg [place] QDAY PRN PRN Reason: Constipation unrelieved by MOM Last Admin: 06/07/17 23:47 Dose: 10 mg Budesonide (Pulmicort) 0.5 mg IH Q12HRT [facility] Last Admin: 06/10/17 07:07 Dose: 0.5 mg Dextrose (D50w (25gm) Syringe) 50 ml IV PRN PRN PRN Reason: Hypoglycemia Enoxaparin Sodium (Lovenox) 40 mg SUB-Q QDAY [facility] Last Admin: 06/10/17 10:55 Dose: 40 mg Famotidine (Pepcid) 20 mg PO QDAY PRN PRN Reason: stomach acid Last Admin: 06/07/17 13:24 Dose: 20 mg Guaifenesin (Robitussin Dm) 10 ml PO Q4H PRN PRN Reason: Cough Last Admin: 06/09/17 03:37 Dose: 10 ml Insulin Aspart (Novolog) 0 units SUB-Q ACHS [facility] PRN Reason: Protocol Last Admin: 06/10/17 10:56 Dose: 1 units Ipratropium [place] (Atrovent) 0.5 mg IH Q4HRT [facility] Last Admin: 06/10/17 11:00 Dose: 0.5 mg Levofloxacin (Levaquin) 750 mg PO Q24H [facility] Last Admin: 06/09/17 21:46 Dose: 750 mg Magnesium Hydroxide (Milk Of Magnesia) 30 ml PO Q4H PRN PRN Reason: Constipation Last Admin: 06/08/17 22:04 Dose: 30 ml Methylprednisolone Sodium Succinate (Solu-Medrol) 20 mg IV Q8H [facility] Last Admin: 06/10/17 05:31 Dose: 20 mg Nicotine (Habitrol) 14 mg TD QDAY [facility] Last Admin: 06/10/17 10:55 Dose: 14 mg Ondansetron HCl (Zofran) 4 mg IV Q8H PRN PRN Reason: N/V unrelieved by Carmen Last Admin: 06/09/17 23:51 Dose: 4 mg Oxycodone/Acetaminophen (Percocet 5/325) 1 tab PO Q6H PRN PRN Reason: Pain, Moderate (4-6) Last Admin: 06/10/17 10:55 Dose: 1 tab Tiotropium [place] (Spiriva) 1 puff IH Q24HRT [facility] Last Admin: 06/10/17 10:42 Dose: Not Given Triamcinolone Acetonide (Kenalog) 1 applic TP BID [facility] Last Admin: 06/10/17 10:57 Dose: 1 applic Objective Vital Signs - 12hr 06/10/17 06/10/17 06/10/17 05:01 07:07 07:17 Temperature 98.0 F Pulse Rate 105 H Pulse Rate [ 125 H 120 H Anterior Bilateral Throughout] Respiratory 22 Rate Respiratory 20 20 Rate [Anterior Bilateral Throughout] Blood Pressure 120/76 O2 Sat by Pulse 98 95 Oximetry 06/10/17 06/10/17 06/10/17 09:20 11:00 11:10 Temperature Pulse Rate 96 H Pulse Rate [ 117 H 122 H Anterior Bilateral Throughout] Respiratory Rate Respiratory 20 20 Rate [Anterior Bilateral Throughout] Blood Pressure O2 Sat by Pulse Oximetry 06/10/17 11:26 Temperature 98.6 F Pulse Rate 110 H Pulse Rate [ Anterior Bilateral Throughout] Respiratory 20 Rate Respiratory Rate [Anterior Bilateral Throughout] Blood Pressure 145/87 O2 Sat by Pulse 97 Oximetry Constitutional: no acute distress, alert Eyes: non-icteric Neck: supple Effort: normal Ascultation: Bilateral: wheezes (better) Cardiovascular: regular rate and rhythm (no mrg) Gastrointestinal: normoactive bowel sounds, soft, non-tender, non-distended Integumentary: normal Extremities: no cyanosis, no edema, pink and warm Neurologic: normal mental status, non-focal exam, pupils equal and round, CN II- XII normal Psychiatric: mood appropriate, affect normal CBC and BMP: 06/08/17 06:18 06/10/17 10:53 ABG, PT/INR, D-dimer: ABG POC ABG pH 7.347 (7.35-7.45) L 06/06/17 15:49 POC ABG pCO2 54.0 (35-45) H 06/06/17 15:49 POC ABG pO2 107 (80-105) H 06/06/17 15:49 POC ABG HCO3 29.6 06/06/17 15:49 POC ABG Total CO2 31 06/06/17 15:49 POC ABG O2 Sat 98 06/06/17 15:49 PT/INR, D-dimer PT 12.5 Sec. (12.2-14.9) 06/06/17 14:25 INR 0.89 (0.87-1.13) 06/06/17 14:25 Abnormal lab findings: Abnormal Labs 06/07/17 06/07/17 06/07/17 12:37 17:33 21:54 RDW Seg Neuts % (Manual) Lymphocytes % (Manual) Lymphocytes # (Manual) Potassium Chloride Carbon Dioxide BUN Creatinine Glucose POC Glucose 225 H 171 H 157 H Calcium AST ALT Total Protein Albumin Hepatitis C Antibody 06/08/17 06/08/17 06/08/17 06:18 06:18 07:08 RDW 16.2 H Seg Neuts % (Manual) 86.0 H Lymphocytes % (Manual) 7.0 L Lymphocytes # (Manual) 0.6 L Potassium 5.4 H D Chloride 96.2 L Carbon Dioxide BUN Creatinine 0.5 L Glucose 162 H POC Glucose 155 H Calcium AST 69 H ALT 160 H Total Protein 6.0 L Albumin 3.6 L Hepatitis C Antibody 06/08/17 06/08/17 06/09/17 16:33 22:09 09:51 RDW Seg Neuts % (Manual) Lymphocytes % (Manual) Lymphocytes # (Manual) Potassium Chloride 91.3 L Carbon Dioxide BUN Creatinine 0.5 L Glucose 172 H POC Glucose 220 H 148 H Calcium AST ALT Total Protein Albumin Hepatitis C Antibody 06/09/17 06/09/17 06/10/17 12:01 16:53 05:56 RDW Seg Neuts % (Manual) Lymphocytes % (Manual) Lymphocytes # (Manual) Potassium Chloride Carbon Dioxide BUN Creatinine Glucose POC Glucose 156 H 133 H Calcium AST ALT Total Protein Albumin Hepatitis C Antibody Reactive A 06/10/17 06/10/17 06/10/17 08:34 10:53 11:33 RDW Seg Neuts % (Manual) Lymphocytes % (Manual) Lymphocytes # (Manual) Potassium Chloride 92.9 L Carbon Dioxide 39 H D BUN 18 H Creatinine 0.4 L Glucose 151 H POC Glucose 154 H 226 H Calcium 8.3 L AST ALT Total Protein Albumin Hepatitis C Antibody Chest x-ray: report reviewed, image reviewed
== END 2017-06-10 14:10 | disposition home or self-care (01) | DRG 189 ==
LOC: ED 13:55 → 4A 18:22
PROVIDERS: ADMIT Internal Medicine; ATTEND Internal Medicine
PROC: 4A033R1 Measurement of Arterial Saturation, Peripheral, Percutaneous Approach (ICD-10-PCS; principal; 2017-06-06)
DX: J96.21 Acute and chronic respiratory failure with hypoxia (principal); J96.22 Acute and chronic respiratory failure with hypercapnia; K21.9 Gastro-esophageal reflux disease without esophagitis; F41.9 Anxiety disorder, unspecified; J20.9 Acute bronchitis, unspecified; J44.1 Chronic obstructive pulmonary disease with (acute) exacerbation; R73.9 Hyperglycemia, unspecified; E66.9 Obesity, unspecified; F17.210 Nicotine dependence, cigarettes, uncomplicated; J44.0 Chronic obstructive pulmonary disease with (acute) lower respiratory infection; E44.0 Moderate protein-calorie malnutrition; I42.9 Cardiomyopathy, unspecified; I11.0 Hypertensive heart disease with heart failure; I50.32 Chronic diastolic (congestive) heart failure; B19.20 Unspecified viral hepatitis C without hepatic coma; T38.0X5A Adverse effect of glucocorticoids and synthetic analogues, initial encounter; Y92.89 Other specified places as the place of occurrence of the external cause; Z90.710 Acquired absence of both cervix and uterus; Z79.51 Long term (current) use of inhaled steroids; Z82.49 Family history of ischemic heart disease and other diseases of the circulatory system; Z71.6 Tobacco abuse counseling; Z68.32 Body mass index [BMI] 32.0-32.9, adult; E22.2 Syndrome of inappropriate secretion of antidiuretic hormone
CPT/HCPCS: 36415; 71010; 76700; 80048; 80053; 80074; 82550; 82803; 82962; 83036; 83880; 84484; 85007; 85025; 85610; 85730; 93005; 93010; 93306; 94640; 94760; 96365; 96367; 96375; 96376; J1170; J1650; J1815; J1956; J2405; J2920; J2930; J3475